=== PATIENT | female | born 1995 | race Caucasian/White ===

== ENCOUNTER 2019-02-01 20:30 | Emergency (ER) | payer MEDICAID ==
[~2019-02-01] VITALS: Ht 160 cm; Wt 57.0 kg
[2019-02-01] MEDS ORDERED: SUBOXONE (20:43)
--- NOTE | 2019-02-01 20:48 | NUR ---
pt to ed after wintessed syncopal episode today. pt was assisted to floor and denies any trauma. 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 pt states she has been nauseated and vomiting since friday and reports feeling dehydrated. piv established [employer] boat [employer] and 4mg zofran administered. upon arrival, pt states she is still nauseated. pt connected to monitors. vss. awaiting edmd assessment. per pt, she just needs med clearance to return to [facility].
--- NOTE | 2019-02-01 21:21 | NUR ---
orders received. ivf bolus started.
[2019-02-01] MEDS ORDERED: SODIUM CHLORIDE 0.9% 1,000ML IVBOLUS ONE (21:30)
[2019-02-01] MEDS ORDERED: SODIUM CHLORIDE FLUSH 10ML SYR IVF ONE (21:30)
[2019-02-01 21:41] LABS: BASOPHILS # (AUTO) 0.07 x10^3/uL (0-0.1); BASOPHILS % (AUTO) 1 % (0-1); EOSINOPHILS # (AUTO) 0.13 x10^3/uL (0-0.4); EOSINOPHILS % (AUTO) 2 % (1-7); LYMPHOCYTES # (AUTO) 1.84 x10^3/uL (1-3.4); LYMPHOCYTES % (AUTO) 22 % (22-44); MD NO; MEAN CORPUSCULAR HEMOGLOBIN 27.9 pg (27.0-34.8); MEAN CORPUSCULAR HGB CONC 31.8 g/dL (32.4-35.8); MEAN CORPUSCULAR VOLUME 87.8 fL (80-100); MEAN PLATELET VOLUME 6.7 fL (7.4-10.4); MONOCYTES # (AUTO) 0.51 x10^3/uL (0.2-0.8); MONOCYTES % (AUTO) 6 % (2-9); NEUTROPHILS # (AUTO) 5.99 x10^3/uL (1.8-6.8); NEUTROPHILS % (AUTO) 70 % (42-75); PLATELET COUNT 402 x10^3/uL (130-400); RED BLOOD COUNT 4.73 x10^6/uL (3.82-5.3); RED CELL DISTRIBUTION WIDTH 15.4 % (9.6-15.2)
--- NOTE | 2019-02-01 21:48 | NUR ---
report from devyn moraes
[2019-02-01 21:54] LABS: ANION GAP 3 mmol/L (5-15); CALCIUM 8.5 mg/dL (8.5-10.1); CHLORIDE 109 mmol/L (98-107); CREATININE 0.74 mg/dL (0.55-1.02)
--- NOTE | 2019-02-01 22:05 | NUR ---
pt for recheck by erp
[2019-02-01 22:18] VITALS: BP 106/72
--- NOTE | 2019-02-01 22:36 | NUR ---
report to devyn lopez at [facility]. pt provided with med clearance (discharge paperwork) and taxi voucher to [facility].
[2019-02-01] MEDS ORDERED: ONDANSETRON ODT 4 MG ONE (22:40)
[2019-02-01] MEDS ORDERED: ONDANSETRON ODT 4 MG PO ONE (23:00)
== END 2019-02-01 22:47 | disposition home or self-care (01) ==
LOC: ED 20:41
DX: R55 Syncope and collapse (principal); F17.200 Nicotine dependence, unspecified, uncomplicated; F19.90 Other psychoactive substance use, unspecified, uncomplicated; Z72.89 Other problems related to lifestyle
CPT/HCPCS: 36415; 80048; 82040; 84703; 85025; 99283; J7030; Q0162